=== PATIENT | female | born 1990 | race Caucasian/White ===

== ENCOUNTER 2019-06-17 10:35 | Emergency (ER) | payer MEDICAID, SELFPAY ==
[2019-06-17] VITALS (18 sets, daily range): BP systolic 114–133; BP diastolic 60–94; PULSE 76–108; RESP 7–23; TEMP 36.7; O2SAT 97–100
--- NOTE | 2019-06-17 10:50 | ED.GENADUL_ITS ---
Discharge Plan Disposition Patient Disposition: HOME Condition: Improving Discharge Details Chief Complaint: Chest Pain Clinical Impression: Atypical chest pain Primary Care Provider: None,None ED Provider: Chiara Fields Home Meds and New Rx's Prescriptions: No Action No Known Home Meds RF: 0 Discharge Instructions Instructions: Chest Pain (ED) Additional Instructions: Alternate Tylenol and Motrin as needed and directed for pain. Drink plenty of fluids and get plenty of rest. You will receive a call from care management regarding a follow-up appoint with the primary care doctor in the next 1 to 2 weeks. Return immediately to the emergency department if you develop any worsening or new concerning symptoms such as persistent pain, shortness of breath, dizziness. Stand Alone Forms: Work Release Discharge Data Discharge Date/Time-TO BE ENTERED AT DEPARTURE: 06/17/19 12:23 Discharge Physician: Chiara Fields Medical Decision Making 1045 -- 28-year-old female with no significant past medical history presents with nausea, dizziness and substernal chest pain since last night. Admits to pleuritic pain. Denies any chest pain at present. EKG notes a rate of 90, sinus with no acute ST ischemic changes. Admits to a family history of DVT. Differential diagnosis includes PE, ACS, electrolyte abnormality, musculoskeletal, stress or anxiety, dehydration, pneumonia. History presentation not consistent with dissection. Will place an IV, give bolus IV fluids, screening labs, d-dimer, chest x-ray and reassess. 1200 -- Labs and imaging reviewed and unremarkable. Normal white blood cell count, hemoglobin, coagulation studies, d-dimer, troponin and electrolytes. Chest x-ray negative. Patient was able to determine that her mother has a history of factor V Leiden and is on lifelong anticoagulation. Discussed with patient that with her strong family history, we could proceed with a CT chest to rule out a PE but she states her symptoms are completely resolved and she would like to go home. She was advised of the risks of and disability which she fully understands. She demonstrates capacity make decisions. She does not have a PCP. She was placed on care management list to establish care with a primary care doctor and for follow-up in the next 1 to 2 weeks. She was advised to return here immediately if she has any worsening or new concerning symptoms. Medical Records Medical records reviewed: Yes I reviewed the patient's medical records. Imaging Data Radiologic Study: Radiologist's impression: XR CHEST 2V PA LATERAL INDICATION: pleuritic chest pain, r/o acute disease. COMPARISON: No exams were available for comparison TECHNIQUE: 2D digital imaging was performed. FINDINGS: Heart size and pulmonary vasculature are within normal limits. The lungs are clear. No effusion or pneumothorax is identified. The bones are unremarkable. IMPRESSION: No acute pulmonary process. Lab Data Lab results reviewed: Yes I reviewed the patient's lab results. Labs: Laboratory Tests Range/Units 06/17/19 06/17/19 06/17/19 10:55 10:55 10:55 WBC (4.4-10.8) k/cumm 7.50 RBC (4.00-5.20) m/cumm 4.77 Hgb (12.0-15.5) g/dL 14.2 Hct (36.0-46.0) % 43.0 MCV (80-95) fL 90.1 MCH (27.0-33.0) pg 29.8 MCHC (32.0-36.0) g/dL 33.0 RDW (11.7-14.6) % 13.8 Plt Count (130-400) x1000/uL 238 MPV (8.0-11.0) fL 10.5 Immature Gran % 0.1 Neutrophils % 61.5 Lymphocytes % 28.0 Monocytes % 8.4 Eosinophils % 1.7 Basophils % 0.3 Absolute Neutrophils (1.2-6.7) k/cumm 4.61 Absolute Lymphocytes (1.2-3.4) k/cumm 2.10 Absolute Monocytes (0.11-0.7) k/cumm 0.63 Absolute Eosinophils (0.0-0.7) k/cumm 0.13 Absolute Basophils (0.0-0.2) k/cumm 0.02 PT (9.3-11.0) sec INR (0.9-1.1) APTT (21.0-31.4) sec D-Dimer (<500) ng/mlFEU 273 Sodium (136-145) mmol/L 140 Potassium (3.5-5.1) mmol/L 3.8 Chloride (98-107) mmol/L 106 Carbon Dioxide (21.0-32.0) mmol/L 25.6 Anion Gap (3-11) mmol/L 8.4 BUN (7-18) mg/dL 9 Creatinine (0.55-1.02) mg/dL 0.78 Estimated GFR/1.73 m2 (mL/min/1.73m2) >= 60.00 Glucose (70-100) mg/dL 86 Calcium (8.5-10.1) mg/dL 9.0 Magnesium (1.8-2.4) mg/dL 1.9 Total Bilirubin (0.2-1.0) mg/dL 0.5 AST (15-37) U/L 13 L ALT (14-59) U/L 28 Alkaline Phosphatase (46-116) U/L 70 Troponin I (0.00-0.06) ng/mL < 0.05 Total Protein (6.4-8.2) g/dL 7.8 Albumin (3.4-5.0) g/dL 4.1 Range/Units 06/17/19 10:55 WBC (4.4-10.8) k/cumm RBC (4.00-5.20) m/cumm Hgb (12.0-15.5) g/dL Hct (36.0-46.0) % MCV (80-95) fL MCH (27.0-33.0) pg MCHC (32.0-36.0) g/dL RDW (11.7-14.6) % Plt Count (130-400) x1000/uL MPV (8.0-11.0) fL Immature Gran % Neutrophils % Lymphocytes % Monocytes % Eosinophils % Basophils % Absolute Neutrophils (1.2-6.7) k/cumm Absolute Lymphocytes (1.2-3.4) k/cumm Absolute Monocytes (0.11-0.7) k/cumm Absolute Eosinophils (0.0-0.7) k/cumm Absolute Basophils (0.0-0.2) k/cumm PT (9.3-11.0) sec 10.4 INR (0.9-1.1) 1.0 APTT (21.0-31.4) sec 27.6 D-Dimer (<500) ng/mlFEU Sodium (136-145) mmol/L Potassium (3.5-5.1) mmol/L Chloride (98-107) mmol/L Carbon Dioxide (21.0-32.0) mmol/L Anion Gap (3-11) mmol/L BUN (7-18) mg/dL Creatinine (0.55-1.02) mg/dL Estimated GFR/1.73 m2 (mL/min/1.73m2) Glucose (70-100) mg/dL Calcium (8.5-10.1) mg/dL Magnesium (1.8-2.4) mg/dL Total Bilirubin (0.2-1.0) mg/dL AST (15-37) U/L ALT (14-59) U/L Alkaline Phosphatase (46-116) U/L Troponin I (0.00-0.06) ng/mL Total Protein (6.4-8.2) g/dL Albumin (3.4-5.0) g/dL ECG Data Attestation: I personally reviewed and interpreted this ECG (s) as follows: Interpretation: Rate of 97, sinus, no acute ST elevation or depression. NC 128. QTc 460. QRS 96. HPI General Mode of arrival: ambulatory . Date/Time Provider Initiated Documentation: 06/17/19 10:39 . Limitations to Documentation: no limitations . Information obtained by: patient . HPI Narrative: Patient is a 28-year-old female who presents to the ED with complaint of several episodes of chest pain, nausea and dizziness since last night. Patient states symptoms started at work last night in which she felt nausea and dizzy with substernal chest pain and heaviness. She states since then resolved on its own and then returned a little while later. She states she awoke this morning with similar type chest pain and heaviness along with nausea and dizziness. She does admit to some shortness of breath when she has the chest pain and states it hurts with deep breath. She denies any chest pain at present. She denies any fever or cough. She denies any recent travel, recent surgery, leg pain or swelling or any oral contraceptive use. Related Data Home Medications Medication Instructions Recorded Confirmed Unknown [No Known Home Meds] 06/17/19 06/17/19 Allergies Allergy/AdvReac Type Severity Reaction Status Date / Time Penicillins Allergy Hives Unverified 06/17/19 10:45 General Stated Complaint: Chest Pain CANDI: 2 Review of Systems All systems reviewed & are unremarkable except as noted in HPI and below Constitutional Constitutional: Reports as per HPI, Denies chills and Denies fever(s) Eyes Eyes: Denies blurry vision ENT Ears, Nose, Mouth, and Throat: Denies dizziness, Denies sore throat and Denies throat swelling Cardiovascular Cardiovascular: Reports chest pain and Denies dyspnea Respiratory Respiratory: Denies cough and Denies dyspnea Gastrointestinal Gastrointestinal: Denies abdominal pain, Denies diarrhea and Denies vomiting Genitourinary Genitourinary: Denies hematuria and Denies dysuria Musculoskeletal Musculoskeletal: Denies back pain and Denies numbness Integumentary/Breasts Skin/Breast: Denies lesions and Denies rash Neurologic Neurologic: Denies dizziness, Denies focal weakness and Denies numbness Allergic/Immunologic Allergic/Immunologic: Denies throat swelling [facility] Medical History No significant past medical history (Acute) Surgical History Cholesteatoma (Acute) History of bilateral tubal ligation (Acute) History of sinus surgery (Acute) Social History Smoking/Tobacco Use Status: Former Tobacco Use Alcohol Intake: current Alcohol Intake frequency: holidays/special occasions on ly Drug use: Never Substance use type: former substance user Do you feel safe at home: Yes Do you feel safe in your relationship?: Yes Exam Const General: cooperative, healthy appearing and no acute distress HENMT Head: normal to inspection Face and sinus: normal facial exam Eyes General: appearance normal, both eyes and all related structures Pupils: PERRL EOM: EOM intact bilaterally Neck Neck: normal visual inspection and No submandibular swelling Lymphatic: no lymphadenopathy noted Chest Chest: normal inspection of the chest and no tenderness Resp Effort & Inspection: normal respiratory effort and able to speak in complete sentences Auscultation: clear to auscultation bilaterally Cardio Rate: regular rate Rhythm: regular rhythm GI Inspection: normal to inspection Palpation: soft, not firm, not rigid and nontender Auscultation: normal bowel sounds Skin General skin exam: no rashes or lesions noted Neuro General: alert, awake and oriented x3 Cognition: normal cognition Speech: speech normal Motor: muscle tone normal throughout Sensory Exam: no sensory deficits noted Extrem General: normal to inspection, full ROM, normal capillary refill, no calf tenderness bilaterally and no edema Psych Appearance: grossly normal Mental Status: mental status grossly normal Speech and Movement: speech and movement normal Affect: normal affect Course Vital Signs Vital signs: Vital Signs Temperature 98.1 F 06/17/19 10:40 Pulse 99 H 06/17/19 10:40 Respiratory Rate 23 06/17/19 10:40 Blood Pressure 133/94 H 06/17/19 10:40 Pulse Oximetry 100 06/17/19 10:40 Temperature 98.1 F 06/17/19 10:40 Temperature Source Temporal Artery Scan 06/17/19 10:40 Pulse 99 H 06/17/19 10:40 Respiratory Rate 23 06/17/19 10:40 Blood Pressure 133/94 H 06/17/19 10:40 Blood Pressure Position Supine 06/17/19 10:40 Pulse Oximetry 100 06/17/19 10:40 Oxygen Delivery Method Room Air 06/17/19 10:40 Oxygen Flow Rate 0 06/17/19 10:40 Pain Level 3 06/17/19 10:40
[2019-06-17 11:03] LABS: Abs Immature Grans 0.01 k/cumm (0.0-0.09); Absolute Basophil Count 0.02 k/cumm (0.0-0.2); Absolute Eosinophil Count 0.13 k/cumm (0.0-0.7); Absolute Monocyte Count 0.63 k/cumm (0.11-0.7); Absolute Neutrophil Count 4.61 k/cumm (1.2-6.7); Basophils % 0.3; Eosinophils % 1.7; HGB 14.2 g/dL (12.0-15.5); Immature Grans % 0.1; Mean Corpuscular Hemoglobin 29.8 pg (27.0-33.0); Mean Corpuscular Volume 90.1 fL (80-95); Mean Platelet Volume 10.5 fL (8.0-11.0); Monocytes % 8.4; Neutrophils % 61.5; Platelet Count 238 x1000/uL (130-400); RBC 4.77 m/cumm (4.00-5.20); RBC Distribution Width 13.8 % (11.7-14.6)
[2019-06-17] MEDS: Normal Saline 1,000 ML 1000 ML IV (11:09)
[2019-06-17 11:22] LABS: ALT 28 U/L (14-59); AST 13 U/L (15-37); Albumin 4.1 g/dL (3.4-5.0); Alkaline Phosphatase 70 U/L (46-116); Anion Gap 8.4 mmol/L (3-11); BUN 9 mg/dL (7-18); Bilirubin, Total 0.5 mg/dL (0.2-1.0); CO2 25.6 mmol/L (21.0-32.0); CREATININE 0.78 mg/dL (0.55-1.02); Chloride 106 mmol/L (98-107); Glucose 86 mg/dL (70-100); Magnesium 1.9 mg/dL (1.8-2.4); Potassium 3.8 mmol/L (3.5-5.1); Sodium 140 mmol/L (136-145); Total Protein 7.8 g/dL (6.4-8.2)
--- NOTE | 2019-06-17 11:25 | DI.RAD_ITS ---
EXAM: XR CHEST 2V PA LATERAL INDICATION: pleuritic chest pain, r/o acute disease. COMPARISON: No exams were available for comparison TECHNIQUE: 2D digital imaging was performed. FINDINGS: Heart size and pulmonary vasculature are within normal limits. The lungs are clear. No effusion or pneumothorax is identified. The bones are unremarkable. IMPRESSION: No acute pulmonary process.
[2019-06-17 11:28] LABS: Troponin I < 0.05 ng/mL (0.00-0.06)
[2019-06-17] MEDS: Prochlorperazine 10 MG/2 ML VIAL IVP (11:48)
[2019-06-17 11:59] LABS: D-Dimer 273 ng/mlFEU (<500)
[2019-06-17 12:03] LABS: PTT Activated 27.6 sec (21.0-31.4); Prothrombin Time 10.4 sec (9.3-11.0)
--- NOTE | 2019-06-19 09:46 | NUR.NOTE ---
chart accessed for demographic information for care management to help establish pcp/follow up care.Nursing Note:
== END 2019-06-17 12:23 | disposition home or self-care (01) ==
PROVIDERS: Emergency Provider Physician Assistant
DX: R07.89 Other chest pain (principal)
CPT/HCPCS: 80053; 93005; 96361; 96374; 99284; 71046; 83735; 84484; 85025; 85379; 85610; 85730; 93010; J0780